=== PATIENT | female | born 1950 | race Asian ===

== ENCOUNTER 2022-06-22 14:01 | Emergency (ER) | payer OTHER ==
[~2022-06-22] VITALS: Ht 157.5 cm; Wt 56.0 kg
[2022-06-22] MEDS ORDERED: TETANUS, DIPHTHERIA, PERTUSSIS VAC/PF 0.5ML (>10YR OLD) IM ONE ×2 (15:15→17:15)
[2022-06-22] MEDS ORDERED: SILVER SULFADIAZINE 1% CREAM 25GM TOP ONE (15:15)
[2022-06-22] MEDS ORDERED: HYDROCODONE/ACETAMINOPHEN 5/325MG TABLET PO ONE (15:15)
[2022-06-22] MEDS ORDERED: SILVER SULFADIAZINE 1% CREAM 25GM TOP NR (17:00)
[2022-06-22] MEDS ORDERED: HYDROCODONE/ACETAMINOPHEN 5/325MG TABLET PO NR (17:00)
[2022-06-22 17:12] VITALS: BP 154/84
[2022-06-22] MEDS ORDERED: SILV50CR31 TP (17:27)
[2022-06-22] MEDS ORDERED: CEPH500C2 MT (17:27)
[2022-06-22] MEDS ORDERED: IBUP-2029 MT (17:27)
[2022-06-22] MEDS ORDERED: HYDR-4001 MT (17:27)
== END 2022-06-22 17:34 | disposition home or self-care (01) ==
LOC: ER 14:01
DX: T24.111A Burn of first degree of right thigh, initial encounter (principal); X10.0XXA Contact with hot drinks, initial encounter; Y93.89 Activity, other specified; Y92.018 Other place in single-family (private) house as the place of occurrence of the external cause
CPT/HCPCS: 16000; 90715; 99283